=== PATIENT | female | born 1950 | race Caucasian/White ===

== ENCOUNTER 2016-06-22 17:21 | Inpatient (IN) | payer MEDICARE, BC ==
[~2016-06-22] VITALS: Ht 167.6 cm; Wt 69.8 kg
--- NOTE | ~2016-06-22 | HP ---
PATIENT'S NAME: JEANETH HERNANDEZ [facility] AGE: 65 Y [address] ROOM: [place] [address] LOCATION: [facility] ADMIT DATE: 06/22/2016 History & Physical DISCHARGE DATE: FAMILY PHYSICIAN: PHYSICIAN, UNKNOWN ATTENDING PHYSICIAN: JOANNE JARAMILLO DATE OF SERVICE: CHIEF COMPLAINT: Acute CVA and JEAN-PIERRE. HISTORY OF PRESENT ILLNESS: This is a 65-year-old female with history of chronic back pain, depression, and hypertension, who presented with complaints of confusion. The patient had presented to [facility] Emergency Room for evaluation of worsening confusion that had been going on over the past 3 to 4 days. The patient tells me that she had been feeling symptoms of generalized weakness and fatigue including sustaining frequent falls over the past two days while she was getting up from a seated position especially. The patient, of note, was seen at the Emergency Room three days ago, and was diagnosed with nausea, vomiting, and diarrhea as probably caused by gastroenteritis of some sort and discharged with supportive care medications. The patient returned today due to worsening symptoms and fall and confusion. The patient otherwise denies any unilateral weakness of her extremities. She still mentions feeling dizzy when she moves, especially from a supine position. However, denies any abdominal pain. Nausea, vomiting, and diarrhea have essentially resolved. She denies any fever or chills and recent sick contacts also. PAST MEDICAL HISTORY: 1. Depression. 2. Hypertension. 3. Chronic back pain. SOCIAL HISTORY: The patient has a life-long history of smoking, however, states that she had quit smoking about six months ago and uses vapor. Occasional alcohol use. No drug use history. FAMILY HISTORY: The patient reports an extensive history of cancer in her brothers, sisters, and parents as well. REVIEW OF SYSTEMS: All systems have been reviewed and were all negative except as described in the HPI. PATIENT'S NAME: JEANETH HERNANDEZ [facility] AGE: 65 Y [address] ROOM: [place] [address] LOCATION: [facility] ADMIT DATE: 06/22/2016 History & Physical DISCHARGE DATE: FAMILY PHYSICIAN: PHYSICIAN, UNKNOWN ATTENDING PHYSICIAN: JOANNE JARAMILLO PHYSICAL EXAMINATION: VITAL SIGNS: Temperature of 98.2, blood pressure of 144/88, heart rate of 86, respiratory rate of 18, and saturating 96% on 2 L. GENERAL: The patient was awake, alert, and oriented x3, in no apparent distress. HEENT: PERRLA. No scleral icterus. Conjunctival pallor was noted. SKIN: Without rash or lesions. CHEST: Clear to auscultation bilaterally. HEART: S1 and S2. Regular rate and rhythm. ABDOMEN: Soft, nontender, and nondistended. Positive bowel sounds. NEUROLOGICAL: Overall grossly nonfocal. She moves all her extremities very well. She does look like she might have facial asymmetry, but states that it is not anything new for her. MUSCULOSKELETAL: Lower back and paraspinal muscle tenderness to palpation. ASSESSMENT AND PLAN: 1. Acute kidney injury. Creatinine per report from her ED visit at [facility] in [place] with creatinine of 4.5, baseline was less than 1, and this was checked three days ago showing that her kidney function was indeed in the normal range. This was likely to be explained by dehydration and prerenal cause noting her nausea, vomiting, and diarrhea and her poor p.o. intake for the past few days. We will give her some IV fluids and do some urine studies and monitor for improvement. We will also consult Nephrology and follow along. 2. Acute CVA. This was noted on the CT scan that was done earlier today, which showed possible acute right temporoparietal infarct with a superimposed chronic periventricular and subcortical small-vessel ischemic disease. The patient does not appear to have clean neurological deficits from this. We will go ahead and do a full stroke workup. I will also get an MRI in the morning and involve Neurology. We will start the patient on aspirin 325 mg daily. 3. Essential hypertension. We will allow for permissive hypertension at this time, and hold her blood pressure medications and give her IV fluids. 4. Chronic back pain. We will continue her home medication regimen in addition to as needed medications. 5. Depression. We will continue all of her antidepressants during her hospitalization. 6. Deep venous thrombosis prophylaxis. We will use SCDs. JOANNE JARAMILLO MD PATIENT'S NAME: JEANETH HERNANDEZ [facility] AGE: 65 Y [address] ROOM: [place] [address] LOCATION: [facility] ADMIT DATE: 06/22/2016 History & Physical DISCHARGE DATE: FAMILY PHYSICIAN: PHYSICIAN, UNKNOWN ATTENDING PHYSICIAN: JOANNE JARAMILLO/asiya /[id number] D: [id number] T: [id number] HISTORY & PHYSICAL
--- NOTE | ~2016-06-22 | DS ---
PATIENT'S NAME: JEANETH HERNANDEZ [facility] AGE: 65 Y [address] ROOM: [address] [address] LOCATION: [facility] ADMIT DATE: 06/22/2016 Discharge Summary DISCHARGE DATE: 06/25/2016 FAMILY PHYSICIAN: Shari Villalobos APRN ATTENDING PHYSICIAN: Juju Cline PRINCIPAL DIAGNOSES: 1. Acute encephalopathy. 2. Rule out CVA. 3. Acute kidney injury. 4. Essential hypertension. 5. Anxiety. 6. Sinus tachycardia. 7. Lung nodule. BRIEF HOSPITAL COURSE: This is a 65-year-old female with history of hypertension and smoking history, who presented with concerns for acute encephalopathy, and CT scan showing a concern for possible stroke, however, MRI of the brain did not agree with the remarks of the CT scan. She was seen by our Neurology Service here, and agreement is that these findings on the CT scan were not indicative of an acute stroke. The patient was also noted to have acute kidney injury with creatinine greater than 4 at presentation, and this is due to her previous 3 days' worth of GI symptoms with nausea, vomiting, diarrhea that she has. The patient was given IV fluids adequately and is currently doing very well from that standpoint. Creatinine back to baseline and good urine, and the patient is stable and ready to be discharged home. Of note, the patient was noted to have an incidental lung nodule on chest x-ray, and I have instructed the patient to get a CT scan of the chest to better evaluate the lung nodule, especially noting her smoking history. We will be discharging her with an order to get a CT scan, and she will follow up with her primary care physician to continue working up that. The patient was also persistently tachycardic with sinus rhythm, although she does have anxiety disorder. She will continue her home medications for her anxiety, and I am also starting her on a low-dose metoprolol 12.5 mg b.i.d. and have her follow up with her primary care physician as well. PHYSICAL EXAMINATION: GENERAL: The patient today is awake, alert, and oriented x3, in no acute distress. CHEST: Clear to auscultation bilaterally. HEART: S1, S2. Regular rate and rhythm. ABDOMEN: Soft, nontender, nondistended. Positive bowel sounds. NEURO: Grossly nonfocal. MEDICATIONS: Per MAR. Notable changes, holding her lisinopril until she has a followup with her primary care physician. I will start her on 5 mg of PATIENT'S NAME: JEANETH HERNANDEZ [facility] AGE: 65 Y [address] ROOM: [place] [address] LOCATION: [facility] ADMIT DATE: 06/22/2016 Discharge Summary DISCHARGE DATE: 06/25/2016 FAMILY PHYSICIAN: Shari Villalobos APRN ATTENDING PHYSICIAN: Juju Cline nightly in the meantime. I have also started her on metoprolol 12.5 mg b.i.d. DISPOSITION: Home. FOLLOWUP: With PCP within 1 week. Greater than 30 minutes were spent in discharge planning and facilitating. MD GARTH CALDERÓN/asiya /[id number] d: 06/26/16 0427 t: 07/15/16 1525, DISCHARGE SUMMARY
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
--- NOTE | ~2016-06-22 | CON ---
PATIENT'S NAME: JEANETH HERNANDEZ [facility] AGE: 65 Y [address] ROOM: [place] [address] LOCATION: [facility] ADMIT DATE: 06/22/2016 Consultation DISCHARGE DATE: FAMILY PHYSICIAN: PHYSICIAN, UNKNOWN ATTENDING PHYSICIAN: JOANNE JARAMILLO DATE OF CONSULTATION: 06/22/2016 REFERRING PHYSICIAN: THERON HOFFMAN MD This is a [facility] Nephrology Consultation. REASON FOR CONSULTATION: Acute kidney injury. HISTORY OF PRESENT ILLNESS: This is a 65-year-old female patient with a history of chronic back pain, depression, and hypertension who presented with multiple complaints of confusion. The patient had presented to [facility] Emergency Room for evaluation of worsening confusion that had been going on over the past 3 to 4 days. The patient did report a history of nausea, vomiting, and diarrhea prior to her visit to the emergency room. She has also complained of generalized weakness and fatigue including a fall from a seated position. The patient was sent to the [facility] for higher level of care after report of unilateral weakness developed with worsening confusion. The patient was found to have a creatinine of 4.5, in the outlying hospital. There was also report of poor oral intake prior with history of lisinopril use. At the time of exam, the patient has been running on IV fluids since her admission. Her creatinine has come down from 3.7 on arrival to 2.5 today. She does have good urinary output as well. PAST MEDICAL HISTORY: Noted and is listed above including. 1. Acute CVA. 2. JEAN-PIERRE. 3. Chronic back pain. 4. Depression. 5. Hypertension. 6. Recent gastroenteritis. 7. History of falling. ALLERGIES: NONE TO MEDICATION. CURRENT HOME MEDICATIONS: Include: 1. Tylenol Arthritis 1300 mg p.o. t.i.d. 2. Abilify 1.5 mg p.o. daily. 3. Klonopin 1 mg p.o. daily or twice a day. 4. Lisinopril 40 mg daily. 5. Minipress 1 mg p.o. at bedtime. 6. Phenergan 25 mg p.o. q.4 to 6 hours p.r.n. nausea. 7. Inderal 10 mg p.o. daily. 8. Zanaflex 4 mg p.o. at bedtime. 9. Tramadol 50 mg p.o. q.6 hours. 10. Effexor 100 mg p.o. t.i.d.PATIENT'S NAME: JEANETH HERNANDEZ [facility] AGE: 65 Y [address] ROOM: [address] [place], [place] [address] LOCATION: [facility] ADMIT DATE: 06/22/2016 Consultation DISCHARGE DATE: FAMILY PHYSICIAN: PHYSICIAN, UNKNOWN ATTENDING PHYSICIAN: JOANNE JARAMILLO SOCIAL HISTORY: The patient does have a lifelong history of smoking; however does report that she had quit smoking about six months ago. Uses Vapor now. ETOH use occasionally and no history of illicit drug use. FAMILY HISTORY: Significant for cancer in a brother, sisters, and parents as well. There is no history of renal disease or dialysis. REVIEW OF SYSTEMS: GENERAL: Complains of fatigue. Denies fever or night sweats. EYES: No double vision, blurred vision. NOSE: No epistaxis or rhinorrhea. MOUTH: No gingival bleeding. THROAT: No sore throat, hoarseness, or cough. RESPIRATORY: Denies wheezing or hemoptysis. CARDIOVASCULAR: Denies chest pain or palpitations. GASTROINTESTINAL: Positive for gastroenteritis with nausea, vomiting, and diarrhea two days prior to admission. GENITOURINARY: Denies any complaints of hematuria, frequency, or urgency. Denies incontinence. MUSCULOSKELETAL: Does have some unilateral weakness. See HPI. NEUROLOGICAL: Positive for dizziness when she moves. HEMATOLOGICAL: Denies bruising or easy bleeding. IMMUNOLOGICAL: Denies recent infections. PSYCHIATRIC: Does have a history of depression and anxiety. PHYSICAL EXAMINATION: VITAL SIGNS: Blood pressure 144/88, heart rate 86, respiratory rate 18, saturating 96% on 2 L, temperature 98.2. GENERAL: On exam, this is an awake and alert white female who appears her approximate stated age. She is in no acute distress. HEENT. Her head is normocephalic and atraumatic. EYES: Pupils are equal and react briskly to light and accommodation. EOMs are intact. Nose: Midline. Mouth: No gingival bleeding. Throat: Without lymphadenopathy, carotid bruits, or JVD. LUNGS: Lung sounds are clear to auscultation anteriorly and posteriorly. CARDIOVASCULAR: Regular rate and rhythm with no appreciable murmurs, rubs, or thrills. ABDOMEN: Soft, nontender, and nondistended. Bowel sounds positive. EXTREMITIES: Show no peripheral edema, clubbing, or cyanosis. NEUROLOGICAL: She does appear to have some facial asymmetry. SKIN: No new lesions or rashes. LABORATORY DATA: WBCs at 10.6, hemoglobin 14.4, hematocrit 43.5, platelets 206. Glucose is 78, BUN 41, creatinine 3.7, sodium 139, potassium 3.3, chloride 101, CO2 26, calcium 8.2, albumin 3.2, AST 47, ALT 27, alkaline phosphatase 185, Mag 1.9. Urinalysis is negative.PATIENT'S NAME: JEANETH HERNANDEZ [facility] AGE: 65 Y [address] ROOM: [id number] [place] [id number] LOCATION: [facility] ADMIT DATE: 06/22/2016 Consultation DISCHARGE DATE: FAMILY PHYSICIAN: PHYSICIAN, UNKNOWN ATTENDING PHYSICIAN: JOANNE JARAMILLO ASSESSMENT AND PLAN: 1. Acute kidney injury on chronic kidney disease stage 3. This is likely a prerenal etiology secondary to dehydration and use of TERESA inhibitor. We will hold her TERESA inhibitor at this time and continue with IV fluid. The patient's creatinine was 4.5 with baseline less than 1. Today, her creatinine is down to 2.5. We will continue IV fluid at this time and await recommendations for the patient's swallowing. When she is able to eat and drink orally, we will discontinue her IV fluid as long as her urinary output is maintained. We will follow with care and monitor her closely. She will be on strict I's and O's as well as daily weights. 2. Acute cerebrovascular accident. This is noted on a CT scan prior to arrival. It does show a right temporal parietal infarct with superimposed chronic periventricular and subcortical small vessel ischemic disease. Further per hospitalist. The patient is planning an MRI in the morning. 3. Hypertension. Blood pressures are stable at this time. 4. Chronic back pain. We will avoid all NSAIDs for pain management. This patient has been seen and assessed by Dr. Rivera. Her care is being conducted in consultation with Dr. Rivera as well as me. We will plan further recommendations as they are forthcoming. TYE CALDERON DNP, GO FOR MD SIENA HURTADO/asiya /[id number] d: 06/24/160 t: 07/04/16 1615, CONSULTATION REPORT
--- NOTE | ~2016-06-22 | ECHO ---
Transthoracic Echocardiography Report (TTE) Demographics Patient Name JEANETH HERNANDEZ Date of Study 06/24/2016 Patient Number [id number] Visit Number [id number] Date of 1950 Room Number G6231 Gender Female Number Age 65 year(s) Referring [facility] Classification Clerk Ame Kilpatrick 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 Diastolic assessment reveals Grade II pseudonormal diastolic function . The left atrium is mildly to moderately dilated. Mild mitral regurgitation by color Doppler with 2 separate jets Mild mitral annular calcification. The aortic valve is mildly sclerotic. There is mild aortic regurgitation by color Doppler. Mild tricuspid regurgitation by color Doppler. There is mild pulmonary hypertension. The pulmonary pressure (RVSP) is 35 mmHg. Procedure Type of Study TTE procedure:2D Echocardiogram. Procedure Date Date: 06/24/2016 Start: 11:11 AM Study Location: Inpatient Portable Indications:CVA. Appropriate Use Criteria: 9 Patient Status: Routine HR: 95 bpm BP: 154/97 mmHg M-Mode/2D Measurements LV Diastolic Dimension: 4.97 cm LV Systolic Dimension: 3.22 cm LV Septum Diastolic: 1 cm LV PW Diastolic: 0.94 cm AO Root Dimension: 2.3 cm Cardiac Output: 5.7 l/min AV Cusp Separation: 1.9 cm RV Diastolic Dimension: 2.83 cm LA volume: 92 ml LVOT: 2 cm LVOT VTI: 19.1 cm LV Stroke volume: 59.97 ml Doppler Measurements AV Peak Velocity: 1.61 m/s MV Peak E-Wave: 0.71 m/s AV Peak Gradient: 10.37 mmHg MV Peak A-Wave: 0.99 m/s AV Mean Gradient: 5 mmHg MV E/A Ratio: 0.72 LVOT Peak Velocity: 1.27 m/s TR Velocity:2.52 m/s PV Peak Velocity: 1.09 m/s TR Gradient:25.4 mmHg PV Peak Gradient: 4.75 mmHg Estimated RAP:10 mmHg Estimated PASP: 35.4 mmHg Estimated RVSP: 35 mmHg A' Septal Velocity: 0.09 m/s E' Septal Velocity: 0.06 m/s A' Lateral Velocity: 0.08 m/s E' Lateral Velocity: 0.12 m/s Findings Left Ventricle Diastolic assessment reveals Grade II pseudonormal diastolic function . Right Ventricle Normal right ventricle structure and function. Left Atrium The left atrium is mildly to moderately dilated. Mitral Valve Mild mitral regurgitation by color Doppler with 2 separate jets Mild mitral annular calcification. Aortic Valve The aortic valve is mildly sclerotic. There is mild aortic regurgitation by color Doppler. Tricuspid Valve Mild tricuspid regurgitation by color Doppler. There is mild pulmonary hypertension. The pulmonary pressure (RVSP) is 35 mmHg. Pulmonic Valve Normal pulmonic valve structure and function. Pericardial Effusion No evidence of pericardial effusion. Pleural Effusion No evidence of pleural effusion. Signature dtt: Maricruz Keller dtd: 06/24/16 [facility] Physician Self Edit
--- NOTE | ~2016-06-22 | ENPV ---
Carotid Duplex Study Demographics Patient Name JEANETH HERNANDEZ Date of Study 06/24/2016 Patient Number [id number] Gender Female Date of 1950 Age 65 Visit Number [id number] Height 65 Accession Number [id number] Weight 148 Referring Interpreting Buster Gutierrez MD Physician Physician Physician Ordering Physician Luis E Matute Piccolo Mechanic Chemical Tester Vic Erwin Conclusions Summary The right internal carotid artery has mild, 1-39%, plaque and stenosis. The left internal carotid artery has mild, 1-39%, plaque and stenosis. The right vertebral artery is present with antegrade flow. The left vertebral artery is present with antegrade flow. Tortuous vessels bilaterally. Calcific plaque in the proximal left internal carotid artery. Procedure Type of Study: Cerebral:Carotid, Carotid Doppler Bilateral. Indications for Study:Stroke. Patient Status:Routine. Study Location:Inpatient Portable. Technical Quality:Adequate visualization. Velocities are measured in cm/s ; Diameters are measured in cm Carotid Right Measurements Carotid Left Measurements + +--------+--------+ + + + +--------+ --------+ + + !Location !PSV !EDV !Angle !%Stenosis ! !Location !PSV ! EDV !Angle !%Stenosis ! + +--------+--------+ + + + +--------+ --------+ + + !Prox CCA !57 !15 !60 ! ! !Prox CCA !69 ! 20 !60 ! ! + +--------+--------+ + + + +--------+ --------+ + + !Dist CCA !51 !16 !60 ! ! !Dist CCA !57 ! 14 !60 ! ! + +--------+--------+ + + + +--------+ --------+ + + !Prox ICA !37 !11 !60 ! ! !Prox ICA !38 ! 15 !60 ! ! + +--------+--------+ + + + +--------+ --------+ + + !Dist ICA !23 !9 !44 ! ! !Dist ICA !47 ! 16 !22 ! ! + +--------+--------+ + + + +--------+ --------+ + + !Prox ECA !67 ! !60 ! ! !Prox ECA !67 ! !60 ! ! + +--------+--------+ + + + +--------+ --------+ + + !Vertebral !39 ! !60 ! ! !Vertebral !54 ! !60 ! ! + +--------+--------+ + + + +--------+ --------+ + + !Subclavian !129 ! !60 ! ! !Subclavian !83 ! !60 ! ! + +--------+--------+ + + + +--------+ --------+ + + - There is antegrade vertebral flow noted on the right side. - There is antegrade verte bral flow noted on the left side. - Add'l Measurements:ICAPSV/CCAPSV 0.65.ICAEDV/CCAEDV 0.7. - Add'l Measurements:ICAPS V/CCAPSV 0.68.ICAEDV/CCAEDV 0.81. Signature dtt: David Goins dtelizabeth: 06/24/16 0839 Physician Self Edit
[2016-06-22 20:07] LABS: BASOPHIL # 0.1 K/uL (0.0-0.2); BASOPHIL % 1.1 %; EOSINOPHIL # 0.4 K/uL (0.0-0.5); EOSINOPHIL % 3.6 %; HEMATOCRIT 43.5 % (33.0-46.0); HEMOGLOBIN 14.4 g/dL (10.0-15.0); IMMATURE GRANULOCYTE % 0.2 %; LYMPHOCYTE # 2.9 K/uL (0.8-4.0); LYMPHOCYTE % 27.6 %; MCH 30.5 pg (27.0-34.0); MCHC 33.1 gm/dL (32.0-36.5); MCV 92.2 fl (83.0-98.0); MONOCYTE # 1.2 K/uL (0.0-1.0); MONOCYTE % 11.2 %; NEUTROPHIL % 56.3 %; NRBC % 0 /100WBC (0-0.00); PLATELET COUNT 206 K/uL (150-450); RBC 4.72 M/uL (3.50-5.50); RDW-CV 14.2 % (11.9-14.6); WBC 10.6 K/uL (4.0-11.0)
[2016-06-22 20:22] LABS: ALBUMIN 3.2 gm/dL (3.5-5.0); ANION GAP 15.3 (10.0-19.0); CALCIUM 8.2 mg/dL (8.5-10.5); CREATININE 3.7 mg/dL (0.5-1.1); MAGNESIUM 1.9 mg/dL (1.8-2.6); POTASSIUM 3.3 mMol/L (3.7-5.1); TOTAL BILIRUBIN 0.8 mg/dL (0.0-1.5); TOTAL PROTEIN 8.1 g/dL (6.0-8.4)
[2016-06-22] MEDS ORDERED: ARIPIPRAZOLE15 MG PO (22:17)
[2016-06-22] MEDS ORDERED: ULTRAM50 MG PO (22:18)
[2016-06-22] MEDS ORDERED: VENLAFAXINE HC100 MG PO (22:18)
[2016-06-22] MEDS ORDERED: PHENERGAN25 M1 PO (22:21)
[2016-06-22] MEDS ORDERED: ZANAFLEX4 MG PO (22:22)
[2016-06-22] MEDS ORDERED: KLONOPIN1 MG PO (22:23)
[2016-06-22] MEDS ORDERED: MINIPRESS1 MG PO (22:24)
[2016-06-22] MEDS ORDERED: ZESTRIL40 MG PO (22:24)
[2016-06-22] MEDS ORDERED: INDERAL10 MG PO (22:25)
[2016-06-22] MEDS ORDERED: TYLENOL ARTHRI650 MG PO (22:26)
[2016-06-23 03:37] LABS: BASOPHIL # 0.1 K/uL (0.0-0.2); BASOPHIL % 1.6 %; EOSINOPHIL # 0.4 K/uL (0.0-0.5); EOSINOPHIL % 4.2 %; HEMATOCRIT 43.7 % (33.0-46.0); HEMOGLOBIN 14.7 g/dL (10.0-15.0); IMMATURE GRANULOCYTE % 0.4 %; LYMPHOCYTE # 2.8 K/uL (0.8-4.0); LYMPHOCYTE % 32.7 %; MCH 30.4 pg (27.0-34.0); MCHC 33.6 gm/dL (32.0-36.5); MCV 90.5 fl (83.0-98.0); MONOCYTE % 11.6 %; MPV 10.3 fl (9.4-12.4); NEUTROPHIL # (ANC) 4.2 K/uL (1.8-7.8); NEUTROPHIL % 49.5 %; NRBC % 0 /100WBC (0-0.00); PLATELET COUNT 190 K/uL (150-450); RBC 4.83 M/uL (3.50-5.50); RDW-CV 14.2 % (11.9-14.6); WBC 8.5 K/uL (4.0-11.0)
[2016-06-23 03:56] LABS: ALBUMIN 2.8 gm/dL (3.5-5.0); CALCIUM 8.2 mg/dL (8.5-10.5); CREATININE 2.5 mg/dL (0.5-1.1); TOTAL PROTEIN 7.5 g/dL (6.0-8.4)
[2016-06-23 03:59] LABS: ANION GAP 15.4 (10.0-19.0); POTASSIUM 4.4 mMol/L (3.7-5.1)
[2016-06-23 04:00] LABS: MAGNESIUM 1.9 mg/dL (1.8-2.6); TOTAL BILIRUBIN 0.6 mg/dL (0.0-1.5)
[2016-06-24 02:42] LABS: BILIRUBIN URINE NEGATIVE (NEGATIVE); BLOOD URINE 10 /UL (NEGATIVE); COLOR URINE COLORLESS (YELLOW); GLUCOSE URINE NEGATIVE (NEGATIVE); KETONE URINE NEGATIVE (NEGATIVE); LEUKOCYTES URINE 25 /UL (NEGATIVE); NITRITE URINE NEGATIVE (NEGATIVE); PROTEIN URINE NEGATIVE (NEGATIVE); TURBIDITY URINE CLEAR (CLEAR); UROBILINOGEN URINE NORMAL (NORMAL)
[2016-06-24 02:56] LABS: BACTERIA URINE RARE (NEGATIVE); EPITHELIAL URINE NEGATIVE #/HPF (NEGATIVE); RBC URINE 0-2 #/HPF (NEGATIVE); YEAST URINE MODERATE (NEGATIVE)
[2016-06-24 04:03] LABS: BASOPHIL # 0.1 K/uL (0.0-0.2); BASOPHIL % 1.6 %; EOSINOPHIL # 0.3 K/uL (0.0-0.5); EOSINOPHIL % 4.5 %; HEMATOCRIT 38.5 % (33.0-46.0); HEMOGLOBIN 12.6 g/dL (10.0-15.0); IMMATURE GRANULOCYTE % 0.2 %; LYMPHOCYTE # 1.8 K/uL (0.8-4.0); LYMPHOCYTE % 32.1 %; MCH 30.6 pg (27.0-34.0); MCHC 32.7 gm/dL (32.0-36.5); MCV 93.4 fl (83.0-98.0); MONOCYTE # 0.6 K/uL (0.0-1.0); MONOCYTE % 10.6 %; MPV 10.2 fl (9.4-12.4); NEUTROPHIL # (ANC) 2.8 K/uL (1.8-7.8); NRBC % 0 /100WBC (0-0.00); RBC 4.12 M/uL (3.50-5.50); RDW-CV 14.2 % (11.9-14.6); WBC 5.6 K/uL (4.0-11.0)
[2016-06-24 04:08] LABS: PLATELET COUNT 137 K/uL (150-450)
[2016-06-24 04:21] LABS: ALBUMIN 2.5 gm/dL (3.5-5.0); ALK PHOS 157 IU/L (33-138); ALT 21 IU/L (12-78); AST 29 IU/L (10-40); BLOOD UREA NITROGEN 19 mg/dL (6-24); CHLORIDE 113 mMol/L (96-110); CO2 23 mMol/L (22-32); POTASSIUM 3.8 mMol/L (3.7-5.1); TOTAL BILIRUBIN 0.5 mg/dL (0.0-1.5); TOTAL PROTEIN 6.6 g/dL (6.0-8.4)
[2016-06-24 04:27] LABS: ANION GAP 13.8 (10.0-19.0); CALCIUM 7.4 mg/dL (8.5-10.5); CREATININE 0.9 mg/dL (0.5-1.1); ESTIMATED GFR (MDRD EQUATION) > 60; MAGNESIUM 1.2 mg/dL (1.8-2.6); SODIUM 146 mMol/L (135-145)
[2016-06-25 04:43] LABS: BASOPHIL # 0.1 K/uL (0.0-0.2); BASOPHIL % 1.2 %; EOSINOPHIL # 0.2 K/uL (0.0-0.5); EOSINOPHIL % 4.7 %; HEMATOCRIT 39.8 % (33.0-46.0); HEMOGLOBIN 12.9 g/dL (10.0-15.0); IMMATURE GRANULOCYTE % 0.2 %; LYMPHOCYTE # 1.6 K/uL (0.8-4.0); LYMPHOCYTE % 30.3 %; MCH 30.2 pg (27.0-34.0); MCHC 32.4 gm/dL (32.0-36.5); MCV 93.2 fl (83.0-98.0); MONOCYTE # 0.5 K/uL (0.0-1.0); MONOCYTE % 9.8 %; MPV 10.4 fl (9.4-12.4); NEUTROPHIL # (ANC) 2.8 K/uL (1.8-7.8); NEUTROPHIL % 53.8 %; NRBC % 0 /100WBC (0-0.00); PLATELET COUNT 149 K/uL (150-450); RBC 4.27 M/uL (3.50-5.50); WBC 5.1 K/uL (4.0-11.0)
[2016-06-25 05:03] LABS: ALBUMIN 2.7 gm/dL (3.5-5.0); ALK PHOS 185 IU/L (33-138); ALT 20 IU/L (12-78); ANION GAP 10.8 (10.0-19.0); AST 30 IU/L (10-40); BLOOD UREA NITROGEN 12 mg/dL (6-24); CHLORIDE 109 mMol/L (96-110); CO2 26 mMol/L (22-32); CREATININE 0.7 mg/dL (0.5-1.1); ESTIMATED GFR (MDRD EQUATION) > 60; MAGNESIUM 2.1 mg/dL (1.8-2.6); POTASSIUM 3.8 mMol/L (3.7-5.1); SODIUM 142 mMol/L (135-145); TOTAL BILIRUBIN 0.4 mg/dL (0.0-1.5); TOTAL PROTEIN 7.2 g/dL (6.0-8.4)
[2016-06-25] MEDS ORDERED: ASPIRIN325 MG PO (16:10)
[2016-06-25] MEDS ORDERED: LOPRESSOR25 MG PO (16:19)
[2016-06-25] MEDS ORDERED: LIPITOR20 M1 PO (16:21)
[2016-06-25] MEDS ORDERED: NORVASC5 MG PO (16:21)
== END 2016-06-25 18:50 | disposition disaster alternative care site (69) | DRG 682 ==
LOC: GNTU 18:37
PROVIDERS: Internal Medicine Nephrology; ADMIT Internal Medicine
DX: N17.9 Acute kidney failure, unspecified (principal); G93.40 Encephalopathy, unspecified; E83.42 Hypomagnesemia; I13.0 Hypertensive heart and chronic kidney disease with heart failure and stage 1 through stage 4 chronic kidney disease, or unspecified chronic kidney disease; I50.32 Chronic diastolic (congestive) heart failure; E86.0 Dehydration; F32.9 Major depressive disorder, single episode, unspecified; M54.9 Dorsalgia, unspecified; M54.16 Radiculopathy, lumbar region; R00.0 Tachycardia, unspecified; G89.29 Other chronic pain; N18.3 Chronic kidney disease, stage 3 (moderate); G47.00 Insomnia, unspecified; F41.9 Anxiety disorder, unspecified; F43.10 Post-traumatic stress disorder, unspecified; Z91.81 History of falling; Z87.891 Personal history of nicotine dependence
CPT/HCPCS: J1170; J2060; J3475; J7030; J7050; J7060

== ENCOUNTER → 2016-06-22 | Outpatient (CLI) | payer MEDICARE, BC ==
[~2016-06-22] MED LIST: ARIPIPRAZOLE15 MG PO; ASPIRIN325 MG PO; INDERAL10 MG PO; KLONOPIN1 MG PO; LIPITOR20 M1 PO; LOPRESSOR25 MG PO; MINIPRESS1 MG PO; NORVASC5 MG PO; PHENERGAN25 M1 PO; TYLENOL ARTHRI650 MG PO; ULTRAM50 MG PO; VENLAFAXINE HC100 MG PO; ZANAFLEX4 MG PO; ZESTRIL40 MG PO
== END | disposition disaster alternative care site (69) ==
LOC: GAIR 17:39
DX: I63.9 Cerebral infarction, unspecified (principal); F41.8 Other specified anxiety disorders; B19.20 Unspecified viral hepatitis C without hepatic coma; M54.9 Dorsalgia, unspecified; G89.29 Other chronic pain; Z79.899 Other long term (current) drug therapy
CPT/HCPCS: A0422; A0431; A0436